=== PATIENT | female | born 1960 | race Caucasian/White ===

== ENCOUNTER → 2016-09-28 | Day surgery (SDC) | payer BC | LOC: MSO 07:12 | DX: Z12.11 Encounter for screening for malignant neoplasm of colon (principal); Z80.0 Family history of malignant neoplasm of digestive organs; I10 Essential (primary) hypertension | CPT/HCPCS: 00810; J3010; J7120 ==

== ENCOUNTER → 2019-03-08 | Outpatient (CLI) | payer BC | LOC: MAMMO 08:39 | DX: Z12.31 Encounter for screening mammogram for malignant neoplasm of breast (principal) ==

== ENCOUNTER → 2021-07-11 | Outpatient (CLI) | payer BC ==
[~2021-07-11] MED LIST: AMLODIPINE BESYL5 MG PO; ELIQUIS5 MG PO; NORCO 325 MG-51 TA1 PO; SERTRALINE HYD100 MG PO; SOLIFENACIN SUC10 MG PO
[2021-07-11 15:27] LABS: D-DIMER 1.55 mg/L FEU (0.15-0.50)
== END ==
LOC: LAB 14:37
PROVIDERS: Family Medicine
DX: M79.662 Pain in left lower leg (principal)

== ENCOUNTER 2021-07-13 18:10 | Emergency (ER) | payer BC ==
[~2021-07-13] VITALS: Ht 177.8 cm; Wt 90.9 kg
[2021-07-13] MEDS ORDERED: AMLODIPINE BESYL5 MG PO (18:20)
[2021-07-13] MEDS ORDERED: ELIQUIS5 MG PO (18:21)
[2021-07-13] MEDS ORDERED: SERTRALINE HYD100 MG PO (18:21)
[2021-07-13] MEDS ORDERED: SOLIFENACIN SUC10 MG PO (18:21)
[2021-07-13] MEDS ORDERED: NORCO 325 MG-51 TA1 PO (18:44)
[2021-07-13 18:51] VITALS: BP 188/123
== END 2021-07-13 18:50 | disposition home or self-care (01) ==
LOC: ED 18:10
DX: M25.562 Pain in left knee (principal)

== ENCOUNTER → 2021-07-14 | Outpatient (CLI) | payer BC | LOC: RAD 11:00 → VAS 11:03 | DX: M79.662 Pain in left lower leg (principal); R79.89 Other specified abnormal findings of blood chemistry; R79.1 Abnormal coagulation profile ==

== ENCOUNTER → 2024-09-21 | Outpatient (CLI) | payer OTHER | LOC: RAD 11:45 | DX: M19.071 Primary osteoarthritis, right ankle and foot (principal); M25.775 Osteophyte, left foot ==